=== PATIENT | female | born 1975 | race Caucasian/White ===

== ENCOUNTER 2021-07-15 16:57 | Emergency (ER) | payer OTHER ==
[2021-07-15 17:29] VITALS: RESP 18; TEMP 97.8
[2021-07-15 18:16] LABS: African American GFR (CKD) >90 (>60 ml/min/1.73 sqM); Anion Gap 10 mmol/L; Blood Urea Nitrogen 12 mg/dL (7-17); Calcium 8.6 mg/dL (8.4-10.2); Carbon Dioxide 19 mmol/L (22-30); Chloride 105 mmol/L (98-107); Glucose 116 mg/dL (74-99); Non-African American GFR(CKD) >90 (>60 ml/min/1.73 sqM); Potassium 3.8 mmol/L (3.5-5.1); Sodium 134 mmol/L (137-145)
[2021-07-15] MEDS ORDERED: SODIUM CHLORIDE 0.9% 50 ML IVPB ONE (18:45)
[2021-07-15] MEDS ORDERED: CASIRIVIMAB (REGN10933) (EUA) 600 MG, IMDEVIMAB (REGN10987) (EUA) 600 MG in SODIUM CHLO... IVPB ONE (18:45)
--- NOTE | 2021-07-15 20:05 | ED ---
URI HPI - General Chief Complaint: Upper Respiratory Infection Stated Complaint: covid+, wants infusion Time Seen by Provider: 07/15/21 18:15 Source: patient Mode of arrival: ambulatory Limitations: no limitations - History of Present Illness Initial Comments: Patient presents with cough and shortness of breath. She was diagnosed with covert just a couple days ago. She was sent to the hospital for monoclonal antibody therapy. She has no belly or back pain. She has no chest pain. She has no swelling in the arms or legs. - Related Data Home Medications Medication Instructions Recorded Confirmed Acetaminophen [Tylenol] 1,000 mg PO Q6H PRN 07/15/21 07/15/21 Ergocalciferol (Vitamin D2) 1,250 mcg PO NICHOLS 07/15/21 07/15/21 [Drisdol (50,000 Iu)] Rosuvastatin Calcium [Crestor] 20 mg PO DAILY 07/15/21 07/15/21 guaiFENesin [Mucinex] 600 mg PO BID PRN 07/15/21 07/15/21 Allergies Allergy/AdvReac Type Severity Reaction Status Date / Time No Known Allergies Allergy Verified 07/15/21 18:30 Review of Systems ROS Statement: Those systems with pertinent positive or pertinent negative responses have been documented in the HPI. ROS Other: All systems not noted in ROS Statement are negative. Past Medical History Past Medical History: Hyperlipidemia History of Any Multi-Drug Resistant Organisms: None Reported Past Surgical History: Breast Surgery, Section, Hernia Repair Additional Past Surgical History / Comment(s): pinniculectomy Past Psychological History: No Psychological Hx Reported Smoking Status: Never smoker Past Alcohol Use History: None Reported Past Drug Use History: None Reported General Exam Limitations: no limitations General appearance: alert, in no apparent distress Head exam: Present: atraumatic, normocephalic, normal inspection Eye exam: Present: normal appearance, PERRL, EOMI. Absent: scleral icterus, conjunctival injection, periorbital swelling ENT exam: Present: normal exam, mucous membranes moist Neck exam: Present: normal inspection. Absent: tenderness, meningismus, lymphadenopathy Respiratory exam: Present: normal lung sounds bilaterally. Absent: respiratory distress, wheezes, rales, rhonchi, stridor Cardiovascular Exam: Present: regular rate, normal rhythm, normal heart sounds. Absent: systolic murmur, diastolic murmur, rubs, gallop, clicks GI/Abdominal exam: Present: soft, normal bowel sounds. Absent: distended, tenderness, guarding, rebound, rigid Extremities exam: Present: normal inspection, full ROM, normal capillary refill. Absent: tenderness, pedal edema, joint swelling, calf tenderness Back exam: Present: normal inspection Neurological exam: Present: alert, oriented X3, CN II-XII intact Psychiatric exam: Present: normal affect, normal mood Skin exam: Present: warm, dry, intact, normal color. Absent: rash Course Vital Signs 07/15/21 07/15/21 17:24 19:03 Temperature 97.8 F Pulse Rate 77 81 Respiratory 18 18 Rate Blood Pressure 115/82 123/84 O2 Sat by Pulse 96 98 Oximetry Medical Decision Making - Medical Decision Making Patient presents with COVID-19 diagnosis. She will be administered monoclonal antibiotic therapy. She is feeling well with no complication. She is stable for discharge. - Lab Data Result diagrams: 07/15/21 18:01 Lab Results 07/15/21 Range/Units 18:01 Sodium 134 L (137-145) mmol/L Potassium 3.8 (3.5-5.1) mmol/L Chloride 105 (98-107) mmol/L Carbon Dioxide 19 L (22-30) mmol/L Anion Gap 10 mmol/L BUN 12 (7-17) mg/dL Creatinine 0.77 (0.52-1.04) mg/dL Est GFR (CKD-EPI)AfAm >90 (>60 ml/min/1.73 sqM) Est GFR (CKD-EPI)NonAf >90 (>60 ml/min/1.73 sqM) Glucose 116 H (74-99) mg/dL Calcium 8.6 (8.4-10.2) mg/dL Disposition Clinical Impression: COVID-19 Disposition: HOME SELF-CARE Condition: Good Instructions (If sedation given, give patient instructions): Upper Respiratory Infection in Children (ED) Is patient prescribed a controlled substance at d/c from ED?: No Referrals: Glendy Mcmillan MD [Primary Care Provider] - 1-2 days
[2021-07-15 20:32] VITALS: BP 125/78; PULSE 83
== END 2021-07-15 20:21 | disposition home or self-care (01) ==
LOC: EC 16:57
DX: U07.1 COVID-19 (principal); E78.5 Hyperlipidemia, unspecified
CPT/HCPCS: 99284; 36415; 93005; 80048; Q0244

== ENCOUNTER → 2022-03-23 | Outpatient (CLI) | payer OTHER ==
--- NOTE | 2022-03-23 23:50 | MR ---
EXAMINATION TYPE: MR brain wo con DATE OF EXAM: 03/23/2022 COMPARISON: NONE HISTORY: Forgetfulness, headaches. TECHNIQUE: Multiplanar, multisequence imaging of the brain and brainstem is performed without IV cont rast. FINDINGS: Diffusion weighted images demonstrate no evidence of a recent infarct or other diffusion abnormality. The ventricular system and cisternal spaces are normal in size and appearance. The brain volume is a ge appropriate. There is single 4 mm focus of T2 hyperintensity in the deep right frontal white matte r axial image 16. Lesion nonspecific in appearance. Midline structures demonstrate normal morphology. The craniocervical junction appears within normal limits. Normal vascular flow voids are present. Severe mucosal thickening with dependent fluid in lef t sphenoid sinus. Mild to moderate mucosal thickening in the anterior ethmoid sinuses bilaterally. IMPRESSION: 1. Acute on chronic paranasal sinus disease as noted above. 2. Minimal nonspecific white matter changes may be sequela of altered vascular mechanics related to c hronic migraine headaches
== END | disposition home or self-care (01) ==
LOC: RADMRIMAIN 18:12
PROVIDERS: ATTEND Family Medicine
DX: J34.89 Other specified disorders of nose and nasal sinuses (principal); H53.9 Unspecified visual disturbance; R47.9 Unspecified speech disturbances
CPT/HCPCS: 70551

== ENCOUNTER → 2022-08-19 | Outpatient (CLI) | payer OTHER ==
[2022-08-20 00:08] LABS: T4, Free (Free Thyroxine) 1.33 ng/dL (0.800-1.800)
== END | disposition home or self-care (01) ==
LOC: LABWHC1 15:32
PROVIDERS: ATTEND Dermatology
DX: L65.0 Telogen effluvium (principal)
CPT/HCPCS: 36415; 84439; 84481